=== PATIENT | male | born 2000 | race Caucasian/White ===

== ENCOUNTER 2019-02-24 13:33 | Emergency (ER) | payer OTHER, SELFPAY ==
[2019-02-24 13:37] VITALS: BP 140/85; PULSE 90; RESP 16; TEMP 37.2; O2SAT 100; BMI 24.4
[2019-02-24 13:47] VITALS: PULSE 72
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
--- NOTE | 2019-02-24 14:28 | PC.NURSE ---
Wyatt wrap to right hand applied and patient educated on elevating extremity as well as ice for next 48 hours. Verbalized understanding.
[2019-02-24 14:35] VITALS: BP 128/74; PULSE 68; RESP 16; O2SAT 96
== END 2019-02-24 14:37 | disposition home or self-care (01) ==
PROVIDERS: Emergency Provider Emergency Medicine; Family Provider Family Medicine
DX: S60.221A Contusion of right hand, initial encounter (principal); W21.89XA Striking against or struck by other sports equipment, initial encounter; Y93.71 Activity, boxing
CPT/HCPCS: 73130; 99281

== ENCOUNTER 2019-06-01 17:43 | Inpatient (IN) | payer OTHER, SELFPAY ==
[2019-06-01 17:46] VITALS: BP 146/102; PULSE 90; RESP 17; TEMP 37.1; O2SAT 96; BMI 25.7
[2019-06-01 18:11] VITALS: RESP 17
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
[2019-06-01 18:15] VITALS: RESP 17
[2019-06-01] MEDS: lidocaine 1% INJ 20 mL 50 ML INJECTION (18:21)
[2019-06-01 18:24] LABS: Basophils # 0.1 10^3/uL (0.0-0.1); Basophils % 0.7 %; Eosinophils % 0.3 %; Hematocrit 49.6 % (42.0-52.0); Hemoglobin 17.5 g/dL (11.7-16.6); Lymphocytes # 2.4 10^3/uL (1.5-6.5); Lymphocytes % 33.6 %; Mean Corpuscular HGB Conc 35.3 g/dL (30.0-36.0); Mean Corpuscular Hemoglobin 31.5 pg (28.0-34.0); Mean Corpuscular Volume 89.4 fL (80-94); Mean Platelet Volume 10.3 fL (7.4-10.4); Monocytes # 0.4 10^3/uL (0.2-0.9); Monocytes % 6.1 %; Neutrophils # 4.2 10^3/uL (1.8-8.0); Nucleated Red Blood Cells % 0 %; Platelet Count 195 10^3/cmm (130-400); Red Blood Count 5.55 10^6/uL (4.1-5.3); Red Cell Distribution Width 11.8 % (12.1-15.1); White Blood Count 7.2 10^3/uL (4.5-13.0)
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
[2019-06-01 18:32] LABS: Add Urine Microscopic? NO
[2019-06-01 18:40] LABS: Urine Appearance Clear (CLEAR); Urine Color Yellow (Yellow)
[2019-06-01 18:41] LABS: Bilirubin Urine Neg (NEGATIVE); Blood Urine Neg (Negative); Glucose Urine UA Norm (Normal); Ketones Urine Negative (Negative); Leukocyte Esterase Urine Negative (Negative); Nitrate Urine Negative (Negative); Protein Urine Neg (Negative); Urobilinogen Urine Norm (Negative); pH Urine 5 (5-7)
[2019-06-01 18:52] LABS: Alanine Aminotransferase 16 U/L (0-41); Albumin Level 5.3 g/dL (3.5-5.2); Alcohol Level 202 mg/dL (0-10); Alkaline Phosphatase 107 IU/L (40-130); Aspartate Amino Transferase 23 U/L (0-40); Blood Urea Nitrogen 12 mg/dL (6-20); Calcium 9.7 mg/dL (8.5-10.5); Carbon Dioxide 25 mmol/L (22-29); Chloride 104 mmol/L (98-107); Creatinine Clr Calc Pharmacy 150.0615; Globulin 2.5 g/dL (1.3-4.6); Glomerular Filtration Rate 107.6 mL/min (90-130); Glucose 98 mg/dL (65-115); Osmolality Calculated 292 mOsm/kg (285-295); Sodium 143 mmol/L (136-145); Thyroid Stimulating Hormone 0.82 uIU/mL (0.27-4.20); Total Bilirubin 0.6 mg/dL (0.15-1.2); Total Protein 7.8 g/dL (6.6-8.7)
[2019-06-01 19:05] LABS: Acetaminophen < 5.0 ug/mL (10-30); Salicylate < 0.3 mg/dL (3-10)
[2019-06-01 19:10] LABS: Amphetamines Screen Urine Negative (Negative); Barbiturates Screen Urine Negative (Negative); Benzodiazepines Screen Urine Negative (Negative); Cocaine Screen Urine Negative (Negative); Opiate Screen Urine Negative (Negative); PCP Screen Urine Negative (Negative); THC Screen Urine Positive (Negative)
[2019-06-01 19:45] VITALS: BP 132/98; PULSE 74; RESP 14; O2SAT 99
[2019-06-01 20:00] VITALS: BP 132/91; PULSE 74; RESP 18; O2SAT 99
[2019-06-01 20:13] VITALS: BP 129/86; PULSE 83; RESP 17; TEMP 36.8; O2SAT 97
[2019-06-02 06:00] VITALS: BP 125/79; PULSE 56; RESP 15; TEMP 37; O2SAT 98
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
[2019-06-02] MEDS: acetaminophen 325 mg Tablet 650 MG PO (11:45)
[2019-06-02 13:27] VITALS: BP 125/79; PULSE 70; RESP 18; TEMP 36.8; O2SAT 97
[2019-06-02 20:22] VITALS: BP 136/94; PULSE 71; RESP 17; TEMP 36.5; O2SAT 97
[2019-06-02] MEDS: trazodone 50 mg Tablet PO (20:52)
[2019-06-03 06:00] VITALS: BP 127/78; PULSE 55; RESP 17; TEMP 37.1; O2SAT 99
[2019-06-03] MEDS: acetaminophen 325 mg Tablet 650 MG PO (09:24)
[2019-06-03 13:08] VITALS: BP 120/87; PULSE 70; RESP 18; TEMP 36.7; O2SAT 98
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
[2019-06-03 14:48] VITALS: BP 120/87; PULSE 70; RESP 18; TEMP 36.7; O2SAT 98
== END 2019-06-03 16:08 | disposition home or self-care (01) | DRG 983 ==
LOC: ER 19:40 → NP 19:46
PROVIDERS: Admitting Provider Psychiatry & Neurology Psychiatry; Emergency Provider Family Medicine; Family Provider Family Medicine; Visit Provider Psychiatry & Neurology Psychiatry
DX: F10.129 Alcohol abuse with intoxication, unspecified (principal); F43.25 Adjustment disorder with mixed disturbance of emotions and conduct; F12.20 Cannabis dependence, uncomplicated; Z81.8 Family history of other mental and behavioral disorders; S61.411A Laceration without foreign body of right hand, initial encounter; S61.212A Laceration without foreign body of right middle finger without damage to nail, initial encounter; X78.0XXA Intentional self-harm by sharp glass, initial encounter; Y92.9 Unspecified place or not applicable; Y90.7 Blood alcohol level of 200-239 mg/100 ml
CPT/HCPCS: 12002; 12345; 73120; 80053; 80306; 80307; 81003; 84443; 85025; 99284; J2001

== ENCOUNTER → 2019-06-19 12:52 | Outpatient (BNVA) | payer OTHER, SELFPAY | PROVIDERS: Family Provider Family Medicine; Visit Provider Nurse Practitioner Family | DX: R05 Cough (principal); J06.9 Acute upper respiratory infection, unspecified; Z20.828 Contact with and (suspected) exposure to other viral communicable diseases | CPT/HCPCS: 87400; 87635 ==

== ENCOUNTER 2021-09-14 18:45 | Emergency (ER) | payer SELFPAY ==
[2021-09-14 18:49] VITALS: BP 146/89; PULSE 93; RESP 18; TEMP 36.8; O2SAT 99; BMI 25.7
--- NOTE | 2021-09-14 19:00 | USR_ITS ---
PROCEDURE INFORMATION: Exam: US Scrotum Exam date and time: 09/14/2021 8:25 PM Age: 21 years old Clinical indication: Groin pain; Patient HX: Left scrotal pain x 4 days; Additional info: Testicle pain, no trauma TECHNIQUE: Imaging protocol: Real-time ultrasound of the scrotum and contents with color Doppler and image documentation. COMPARISON: [place] [facility] [place] 11/24/2017 2:10 PM FINDINGS: Right testicle: The right testis measures 4.7 x 2.7 x 3.3 cm. The testis is normal in echotexture. No focal testicular lesion is demonstrated. Appropriate blood flow documented by Doppler. Left testicle: Left testis measures 4.6 x 2.6 x 2.8 cm. The testis is normal in echotexture. No focal testicular lesion is demonstrated. Appropriate blood flow documented by Doppler. Epididymides: Unremarkable. Scrotum: Small left varicocele demonstrated. Small left hydrocele. US/US scrotum [id number] IMPRESSION: 1. Sonographically normal bilateral testes. 2. Small left varicocele demonstrated. 3. Small left hydrocele.
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
[2021-09-14 19:26] LABS: Add Urine Microscopic? NO; Charge for UA Resulting for Rev
[2021-09-14] MEDS: ibuprofen 600 mg Tablet PO (19:27)
[2021-09-14 20:16] LABS: Blood Urine Neg (Negative); Glucose Urine UA Norm (Normal); Ketones Urine 1+ (Negative); Nitrate Urine Negative (Negative); Protein Urine Neg (Negative); Specific Gravity, Urine 1.015 (1.005-1.030); Urine Appearance Clear (CLEAR); Urine Color Yellow (Yellow)
[2021-09-14 20:17] LABS: Bilirubin Urine Neg (Negative); Leukocyte Esterase Urine Negative (Negative); Urobilinogen Urine Neg (Negative)
[2021-09-14 21:26] VITALS: BP 130/81; PULSE 64; RESP 16; O2SAT 99
== END 2021-09-14 21:27 | disposition home or self-care (01) ==
PROVIDERS: Emergency Medicine; Emergency Provider Nurse Practitioner Family
DX: I86.1 Scrotal varices (principal)
CPT/HCPCS: 76870; 81003; 87491; 87591; 99284

== ENCOUNTER → 2022-04-02 12:17 | Outpatient (BNVA) | payer SELFPAY | PROVIDERS: Visit Provider Nurse Practitioner | DX: R39.9 Unspecified symptoms and signs involving the genitourinary system (principal) | CPT/HCPCS: 81000 ==